=== PATIENT | male | born 1970 | race African-American/Black ===

== ENCOUNTER 2024-01-22 14:07 | Inpatient (IN) | payer OTHER ==
[2024-01-22 17:07] VITALS: BMI 18.7
[2024-01-22] MEDS ORDERED: BENZONATATE 200 MG CAPSULE PO PRN (19:15)
[2024-01-22] MEDS ORDERED: BISMUTH SUBSALICYLATE 524 MG/30 ML PO PRN (19:15)
[2024-01-22] MEDS ORDERED: NALOXONE HCL 0.4 MG/ML VIAL IM PRN (19:15)
[2024-01-22] MEDS ORDERED: DICYCLOMINE HCL 10 MG CAPSULE PO PRN (19:15)
[2024-01-22] MEDS ORDERED: MAG HYDROX/AL HYDROX/SIMETH 30 ML UNIT-DOSE CUP PO PRN (19:15)
[2024-01-22] MEDS ORDERED: IBUPROFEN 400 MG TABLET (FP) PO PRN (19:15)
[2024-01-22] MEDS ORDERED: MAGNESIUM HYDROX 2400MG/30ML ORAL SUSPENSION 30 ML CUP PO PRN (19:15)
[2024-01-22] MEDS ORDERED: NALOXONE (NARCAN) HCL 4 MG/0.1 ML SPRAY NS PRN (19:15)
[2024-01-22] MEDS ORDERED: LOPERAMIDE HCL 2 MG CAPSULE PO PRN (19:15)
[2024-01-22] MEDS ORDERED: guaiFENesin 600 MG TABLET.ER (FP) PO PRN (19:15)
[2024-01-22] MEDS ORDERED: ACETAMINOPHEN 325 MG TABLET (FP) PO PRN (19:15)
[2024-01-22] MEDS ORDERED: POLYETHYLENE GLYCOL (HEALTHYLAX) 3350 17 GM PACKET PO PRN (19:15)
[2024-01-22] MEDS ORDERED: BENZOCAINE/MENTHOL (CHLORASEPTIC ) LOZENGE MM PRN (19:15)
[2024-01-22] MEDS ORDERED: NICOTINE POLACRILEX 2 MG GUM BUC PRN (19:23)
[2024-01-22] MEDS ORDERED: chlordiazePOXIDE HCL 25 MG CAPSULE PO PRN (19:25)
[2024-01-22] MEDS: chlordiazePOXIDE HCL 25 MG CAPSULE PO SCH (22:30)
[2024-01-22] MEDS: MELATONIN 5 MG TABLETS PO SCH (22:31)
[2024-01-22] MEDS: THIAMINE 100 MG TABLET PO SCH (22:31)
[2024-01-23] MEDS ORDERED: methaDONE 40 MG, methaDONE 10 MG PO SCH (10:00)
[2024-01-23] MEDS: methaDONE 40 MG, methaDONE 20 MG PO SCH (10:39)
[2024-01-23] MEDS: NICOTINE 14 MG/24 HOURS TOPICAL PATCH TD SCH (10:40)
[2024-01-23] MEDS: PRENATAL VITAMINS W/ FOLIC ACID TABLET (FP) PO SCH (10:40)
[2024-01-23] MEDS: methaDONE HCL 10 MG TABLET PO SCH (10:43)
[2024-01-23 12:16] LABS: HEMOGLOBIN 13.5 GM/dL (11.7-16.9); MCHC 33.1 g/dl (32.0-35.9); MEAN CELL VOLUME 90.8 fl (80-96); MEAN PLT VOLUME 8.2 fl (7.5-11.1); PLATELET COUNT 245 10^3/uL (134-434); RBC 4.51 M/mm3 (4.00-5.60); RDW 14.4 % (11.9-15.9); WHITE BLOOD COUNT 5.7 K/mm3 (4.0-10.0)
[2024-01-23] MEDS: LIDOCAINE 5% TOPICAL PATCH TP SCH (12:33)
[2024-01-23 13:15] LABS: CHLORIDE 103 mmol/L (98-107); SODIUM 142 mmol/L (136-145)
[2024-01-23 13:23] LABS: BLOOD UREA NITROGEN 13.9 mg/dL (7-18); GLUCOSE,RANDOM 105 mg/dL (74-106); SGPT/ALT 22 U/L (13-61)
[2024-01-23 13:24] LABS: ALBUMIN 2.6 g/dl (3.4-5.0); CREATININE 0.8 mg/dL (0.55-1.3)
[2024-01-23 13:25] LABS: BILIRUBIN,TOTAL 0.4 mg/dL (0.2-1); TOT PROT 5.5 g/dl (6.4-8.2)
[2024-01-23 13:26] LABS: ALK PHOS 74 U/L (45-117); ANION GAP 6 mmol/L (4-13); CALCIUM 8.8 mg/dL (8.5-10.1); CO2 32 mmol/L (21-32); SGOT/AST 23 U/L (15-37)
[2024-01-23] MEDS: METHOCARBAMOL 500 MG TABLET PO PRN (16:54)
[2024-01-23] MEDS: IBUPROFEN 600 MG TABLET (FP) PO PRN (22:09)
[2024-01-23] MEDS: QUEtiapine FUMARATE 200 MG TABLET PO SCH (22:10)
[2024-01-23] MEDS: ATORVASTATIN CA 40 MG TABLET (FP) PO SCH (22:10)
[2024-01-23] MEDS: LIDOCAINE PATCH REMOVAL MC SCH (22:36)
[2024-01-24] MEDS: chlordiazePOXIDE HCL 25 MG CAPSULE PO SCH (05:55)
[2024-01-25] MEDS ORDERED: chlordiazePOXIDE HCL 10 MG CAPSULE PO PRN
[2024-01-25] MEDS: chlordiazePOXIDE HCL 10 MG CAPSULE PO SCH (05:20)
[2024-01-25] MEDS: ONDANSETRON *ODT* 4 MG TABLET SL PRN (07:27)
[2024-01-25] MEDS: hydrOXYzine PAMOATE 25 MG CAPSULE (FP) PO PRN (17:32)
[2024-01-26] MEDS: chlordiazePOXIDE HCL 10 MG CAPSULE PO SCH (05:30)
[2024-01-26 13:08] VITALS: RESP 16
[2024-01-27] MEDS: chlordiazePOXIDE HCL 10 MG CAPSULE PO ONE (05:18)
[2024-01-27 09:29] VITALS: BP 96/52; PULSE 88; TEMP 97.5
[2024-02-05] MEDS ORDERED: IBUPROFEN 400 MG TABLET (FP) PO PRN (15:23)
[2024-02-05] MEDS ORDERED: ONDANSETRON *ODT* 4 MG TABLET SL PRN (15:23)
[2024-02-05] MEDS ORDERED: MAG HYDROX/AL HYDROX/SIMETH 30 ML UNIT-DOSE CUP PO PRN (15:23)
[2024-02-05] MEDS ORDERED: METHOCARBAMOL 500 MG TABLET PO PRN (15:23)
[2024-02-05] MEDS ORDERED: BENZONATATE 200 MG CAPSULE PO PRN (15:23)
[2024-02-05] MEDS ORDERED: NALOXONE HCL 0.4 MG/ML VIAL IM PRN (15:23)
[2024-02-05] MEDS ORDERED: MAGNESIUM HYDROX 2400MG/30ML ORAL SUSPENSION 30 ML CUP PO PRN (15:23)
[2024-02-05] MEDS ORDERED: BENZOCAINE/MENTHOL (CHLORASEPTIC ) LOZENGE MM PRN (15:23)
[2024-02-05] MEDS ORDERED: IBUPROFEN 600 MG TABLET (FP) PO PRN (15:23)
[2024-02-05] MEDS ORDERED: NICOTINE POLACRILEX 2 MG GUM BUC PRN (15:23)
[2024-02-05] MEDS ORDERED: BISMUTH SUBSALICYLATE 524 MG/30 ML PO PRN (15:23)
[2024-02-05] MEDS ORDERED: hydrOXYzine PAMOATE 25 MG CAPSULE (FP) PO PRN (15:23)
[2024-02-05] MEDS ORDERED: LOPERAMIDE HCL 2 MG CAPSULE PO PRN (15:23)
[2024-02-05] MEDS ORDERED: DICYCLOMINE HCL 10 MG CAPSULE PO PRN (15:23)
[2024-02-05] MEDS ORDERED: NALOXONE (NARCAN) HCL 4 MG/0.1 ML SPRAY NS PRN (15:23)
[2024-02-05] MEDS ORDERED: POLYETHYLENE GLYCOL (HEALTHYLAX) 3350 17 GM PACKET PO PRN (15:23)
[2024-02-05] MEDS ORDERED: ACETAMINOPHEN 325 MG TABLET (FP) PO PRN (15:23)
[2024-02-05] MEDS ORDERED: guaiFENesin 600 MG TABLET.ER (FP) PO PRN (15:23)
[2024-02-05] MEDS ORDERED: THIAMINE 100 MG TABLET PO SCH (22:00)
[2024-02-05] MEDS ORDERED: MELATONIN 5 MG TABLETS PO SCH (22:00)
[2024-02-06] MEDS ORDERED: NICOTINE 14 MG/24 HOURS TOPICAL PATCH TD SCH (10:00)
[2024-02-06] MEDS ORDERED: PRENATAL VITAMINS W/ FOLIC ACID TABLET (FP) PO SCH (10:00)
== END 2024-01-27 11:54 | disposition home or self-care (01) | DRG 773 ==
LOC: YASAS 14:07 → Y3N 19:51
PROVIDERS: ADMIT Allergy & Immunology; ATTEND Family Medicine Addiction Medicine
PROC: HZ2ZZZZ Detoxification Services for Substance Abuse Treatment (ICD-10-PCS; principal; 2024-01-22)
DX: F10.230 Alcohol dependence with withdrawal, uncomplicated (principal); F11.20 Opioid dependence, uncomplicated; F14.10 Cocaine abuse, uncomplicated; F17.210 Nicotine dependence, cigarettes, uncomplicated; F20.9 Schizophrenia, unspecified; F32.A Depression, unspecified; F41.9 Anxiety disorder, unspecified; E78.5 Hyperlipidemia, unspecified; H91.92 Unspecified hearing loss, left ear; B35.3 Tinea pedis; M54.50 Low back pain, unspecified; G89.29 Other chronic pain
CPT/HCPCS: 36415; 80053; 80305; 80307; 85027; 86780; 93005; 93010; Q0162

== ENCOUNTER 2024-02-05 11:30 | Inpatient (IN) | payer OTHER ==
[2024-02-05 12:05] VITALS: BMI 19.5
[2024-02-05] MEDS ORDERED: BENZOCAINE/MENTHOL (CHLORASEPTIC ) LOZENGE MM PRN (15:32)
[2024-02-05] MEDS ORDERED: MAGNESIUM HYDROX 2400MG/30ML ORAL SUSPENSION 30 ML CUP PO PRN (15:32)
[2024-02-05] MEDS ORDERED: ONDANSETRON *ODT* 4 MG TABLET SL PRN (15:32)
[2024-02-05] MEDS ORDERED: hydrOXYzine PAMOATE 25 MG CAPSULE (FP) PO PRN (15:32)
[2024-02-05] MEDS ORDERED: IBUPROFEN 400 MG TABLET (FP) PO PRN (15:32)
[2024-02-05] MEDS ORDERED: BENZONATATE 200 MG CAPSULE PO PRN (15:32)
[2024-02-05] MEDS ORDERED: LOPERAMIDE HCL 2 MG CAPSULE PO PRN (15:32)
[2024-02-05] MEDS ORDERED: IBUPROFEN 600 MG TABLET (FP) PO PRN (15:32)
[2024-02-05] MEDS ORDERED: NALOXONE HCL 0.4 MG/ML VIAL IM PRN (15:32)
[2024-02-05] MEDS ORDERED: POLYETHYLENE GLYCOL (HEALTHYLAX) 3350 17 GM PACKET PO PRN (15:32)
[2024-02-05] MEDS ORDERED: ACETAMINOPHEN 325 MG TABLET (FP) PO PRN (15:32)
[2024-02-05] MEDS ORDERED: MAG HYDROX/AL HYDROX/SIMETH 30 ML UNIT-DOSE CUP PO PRN (15:32)
[2024-02-05] MEDS ORDERED: BISMUTH SUBSALICYLATE 524 MG/30 ML PO PRN (15:32)
[2024-02-05] MEDS ORDERED: METHOCARBAMOL 500 MG TABLET PO PRN (15:32)
[2024-02-05] MEDS ORDERED: guaiFENesin 600 MG TABLET.ER (FP) PO PRN (15:32)
[2024-02-05] MEDS ORDERED: NALOXONE (NARCAN) HCL 4 MG/0.1 ML SPRAY NS PRN (15:32)
[2024-02-05] MEDS ORDERED: NICOTINE POLACRILEX 2 MG GUM BUC PRN (15:32)
[2024-02-05] MEDS ORDERED: chlordiazePOXIDE HCL 25 MG CAPSULE PO PRN (15:38)
[2024-02-05] MEDS: chlordiazePOXIDE HCL 25 MG CAPSULE PO SCH (17:18)
[2024-02-05] MEDS: THIAMINE 100 MG TABLET PO SCH (22:43)
[2024-02-05] MEDS: MELATONIN 5 MG TABLETS PO SCH (22:43)
[2024-02-05] MEDS: ATORVASTATIN CA 40 MG TABLET (FP) PO SCH (22:44)
[2024-02-06] MEDS: methaDONE HCL 10 MG TABLET PO ONE (09:04)
[2024-02-06] MEDS: NICOTINE 14 MG/24 HOURS TOPICAL PATCH TD SCH (09:21)
[2024-02-06] MEDS: methaDONE 40 MG, methaDONE 20 MG PO SCH (09:24)
[2024-02-06] MEDS: PRENATAL VITAMINS W/ FOLIC ACID TABLET (FP) PO SCH (09:25)
[2024-02-06] MEDS: DICYCLOMINE HCL 10 MG CAPSULE PO PRN (10:07)
[2024-02-06 14:41] LABS: CHLORIDE 107 mmol/L (98-107); POTASSIUM 3.8 mmol/L (3.5-5.1); SODIUM 144 mmol/L (136-145)
[2024-02-06 14:51] LABS: CALCIUM 8.8 mg/dL (8.5-10.1)
[2024-02-06 14:52] LABS: ALBUMIN 2.6 g/dl (3.4-5.0); ANION GAP 6 mmol/L (4-13); BLOOD UREA NITROGEN 16.7 mg/dL (7-18); CO2 30 mmol/L (21-32); GLUCOSE,RANDOM 94 mg/dL (74-106); SGPT/ALT 20 U/L (13-61)
[2024-02-06 14:54] LABS: ALK PHOS 70 U/L (45-117); BILIRUBIN,TOTAL 0.4 mg/dL (0.2-1); TOT PROT 5.4 g/dl (6.4-8.2)
[2024-02-06 14:55] LABS: CREATININE 0.7 mg/dL (0.55-1.3); SGOT/AST 19 U/L (15-37)
[2024-02-06] MEDS: QUEtiapine FUMARATE 200 MG TABLET PO SCH (22:24)
[2024-02-07] MEDS: chlordiazePOXIDE HCL 25 MG CAPSULE PO SCH (05:52)
[2024-02-07] MEDS ORDERED: methaDONE HCL 10 MG TABLET PO SCH (06:00)
[2024-02-08] MEDS ORDERED: chlordiazePOXIDE HCL 10 MG CAPSULE PO PRN
[2024-02-08] MEDS: chlordiazePOXIDE HCL 10 MG CAPSULE PO SCH (05:35)
[2024-02-08 18:25] VITALS: BP 114/60; PULSE 75; RESP 16; TEMP 98.7
[2024-02-09] MEDS ORDERED: chlordiazePOXIDE HCL 10 MG CAPSULE PO SCH (05:00)
[2024-02-10] MEDS ORDERED: chlordiazePOXIDE HCL 10 MG CAPSULE PO ONE (05:00)
== END 2024-02-08 19:05 | disposition left against medical advice (07) | DRG 770 ==
LOC: YASAS 11:30 → Y6N 16:17
PROVIDERS: ADMIT Allergy & Immunology; ATTEND Surgery
PROC: HZ2ZZZZ Detoxification Services for Substance Abuse Treatment (ICD-10-PCS; principal; 2024-02-05)
DX: F10.230 Alcohol dependence with withdrawal, uncomplicated (principal); F11.20 Opioid dependence, uncomplicated; F14.10 Cocaine abuse, uncomplicated; F17.210 Nicotine dependence, cigarettes, uncomplicated; F20.9 Schizophrenia, unspecified; F19.282 Other psychoactive substance dependence with psychoactive substance-induced sleep disorder; F19.24 Other psychoactive substance dependence with psychoactive substance-induced mood disorder; E78.5 Hyperlipidemia, unspecified; H91.92 Unspecified hearing loss, left ear; B35.3 Tinea pedis
CPT/HCPCS: 36415; 80053; 80305; 80307

== ENCOUNTER 2024-03-26 11:48 | Inpatient (IN) | payer OTHER ==
[2024-03-26 12:20] VITALS: BMI 18.6
[2024-03-26] MEDS ORDERED: guaiFENesin 600 MG TABLET.ER (FP) PO PRN (13:04)
[2024-03-26] MEDS ORDERED: BISMUTH SUBSALICYLATE 262 MG/15 ML BTL PO PRN ×2 (13:04→15:30)
[2024-03-26] MEDS ORDERED: NALOXONE (NARCAN) HCL 4 MG/0.1 ML SPRAY NS PRN (13:04)
[2024-03-26] MEDS ORDERED: NICOTINE POLACRILEX 2 MG GUM BUC PRN (13:04)
[2024-03-26] MEDS ORDERED: IBUPROFEN 400 MG TABLET (FP) PO PRN ×2 (13:04→15:28)
[2024-03-26] MEDS ORDERED: BENZONATATE 200 MG CAPSULE PO PRN (13:04)
[2024-03-26] MEDS ORDERED: MAG HYDROX/AL HYDROX/SIMETH 30 ML UNIT-DOSE CUP PO PRN (13:04)
[2024-03-26] MEDS ORDERED: DICYCLOMINE HCL 10 MG CAPSULE PO PRN (13:04)
[2024-03-26] MEDS ORDERED: LOPERAMIDE HCL 2 MG CAPSULE PO PRN (13:04)
[2024-03-26] MEDS ORDERED: NICOTINE POLACRILEX 2 MG LOZENGE BC PRN (13:04)
[2024-03-26] MEDS ORDERED: MAGNESIUM HYDROX 2400MG/30ML ORAL SUSPENSION 30 ML CUP PO PRN (13:04)
[2024-03-26] MEDS ORDERED: IBUPROFEN 600 MG TABLET (FP) PO PRN ×2 (13:04→15:29)
[2024-03-26] MEDS ORDERED: BENZOCAINE/MENTHOL (CHLORASEPTIC ) LOZENGE MM PRN (13:04)
[2024-03-26] MEDS ORDERED: POLYETHYLENE GLYCOL (HEALTHYLAX) 3350 17 GM PACKET PO PRN (13:04)
[2024-03-26] MEDS ORDERED: ACETAMINOPHEN 325 MG TABLET (FP) PO PRN (15:35)
[2024-03-26] MEDS: ACETAMINOPHEN 325 MG TABLET (FP) PO PRN (15:35)
[2024-03-26] MEDS: METHOCARBAMOL 500 MG TABLET PO PRN (15:35)
[2024-03-26] MEDS: diazePAM 5 MG TABLET PO SCH (17:09)
[2024-03-26] MEDS: THIAMINE 100 MG TABLET PO SCH (22:06)
[2024-03-26] MEDS: MELATONIN 5 MG TABLETS PO SCH (22:06)
[2024-03-27] MEDS ORDERED: methaDONE HCL 10 MG TABLET PO SCH (06:00)
[2024-03-27] MEDS: methaDONE 80 MG, methaDONE 20 MG PO SCH (06:01)
[2024-03-27] MEDS: PRENATAL VITAMINS W/ FOLIC ACID TABLET (FP) PO SCH (10:15)
[2024-03-27] MEDS: FERROUS SO4 325 MG TABLET (FP) PO SCH (10:15)
[2024-03-27 13:01] LABS: HEMATOCRIT 41.3 % (35.4-49); HEMOGLOBIN 13.9 GM/dL (11.7-16.9); MCH 29.9 pg (25.7-33.7); MCHC 33.7 g/dl (32.0-35.9); MEAN CELL VOLUME 88.8 fl (80-96); PLATELET COUNT 221 10^3/uL (134-434); RBC 4.66 M/mm3 (4.00-5.60); RDW 14.5 % (11.9-15.9); WHITE BLOOD COUNT 7.8 K/mm3 (4.0-10.0)
[2024-03-27 13:04] LABS: POTASSIUM 4.5 mmol/L (3.5-5.1)
[2024-03-27] MEDS: CALCIUM (OYSTER SHELL) 500 MG TABLET (FP) PO SCH (13:45)
[2024-03-27 14:04] LABS: ALBUMIN 3.2 g/dl (3.4-5.0); BLOOD UREA NITROGEN 22.2 mg/dL (7-18)
[2024-03-27 14:06] LABS: CALCIUM 9.3 mg/dL (8.5-10.1)
[2024-03-27 14:07] LABS: BILIRUBIN,TOTAL 0.5 mg/dL (0.2-1); TOT PROT 6.8 g/dl (6.4-8.2)
[2024-03-27 14:10] LABS: CREATININE 0.8 mg/dL (0.55-1.3)
[2024-03-27] MEDS: diazePAM 5 MG TABLET PO PRN (18:07)
[2024-03-27] MEDS ORDERED: CICLOPIROX OLAMINE SCH (22:00)
[2024-03-27] MEDS: QUEtiapine FUMARATE 100 MG TABLET (FP) PO SCH (22:21)
[2024-03-28] MEDS: diazePAM 5 MG TABLET PO SCH (06:12)
[2024-03-28] MEDS: ONDANSETRON *ODT* 4 MG TABLET SL PRN (06:26)
[2024-03-28] MEDS: CALCIUM (OYSTER SHELL) 500 MG TABLET (FP) PO SCH (09:19)
[2024-03-29] MEDS: diazePAM 5 MG TABLET PO SCH (05:56)
[2024-03-29] MEDS ORDERED: NALOXONE (NYS OPIOID OVERDOSE PROGRAM) 4 MG/0.1 ML SPRAY NS SCH (09:45)
[2024-03-29 20:59] VITALS: RESP 16
[2024-03-30] MEDS: diazePAM 5 MG TABLET PO ONE (05:43)
[2024-03-30 09:00] VITALS: BP 107/63; PULSE 70; TEMP 97.8
== END 2024-03-30 12:39 | disposition home or self-care (01) | DRG 773 ==
LOC: YASAS 11:48 → Y6N 14:17
PROVIDERS: ADMIT Allergy & Immunology; ATTEND Surgery
PROC: HZ2ZZZZ Detoxification Services for Substance Abuse Treatment (ICD-10-PCS; principal; 2024-03-26)
DX: F10.230 Alcohol dependence with withdrawal, uncomplicated (principal); F11.20 Opioid dependence, uncomplicated; F17.213 Nicotine dependence, cigarettes, with withdrawal; F19.282 Other psychoactive substance dependence with psychoactive substance-induced sleep disorder; F19.24 Other psychoactive substance dependence with psychoactive substance-induced mood disorder; E83.51 Hypocalcemia; H91.92 Unspecified hearing loss, left ear; B35.3 Tinea pedis
CPT/HCPCS: 36415; 80053; 80305; 80307; 85027; Q0162

== ENCOUNTER 2024-05-31 16:37 | Inpatient (IN) | payer OTHER ==
[2024-05-31 17:13] VITALS: BMI 21.2
[2024-05-31] MEDS ORDERED: LORazepam 1 MG TABLET PO PRN (17:19)
[2024-05-31] MEDS ORDERED: NALOXONE (NARCAN) HCL 4 MG/0.1 ML SPRAY NS PRN (17:24)
[2024-05-31] MEDS ORDERED: MAG HYDROX/AL HYDROX/SIMETH 30 ML UNIT-DOSE CUP PO PRN (17:24)
[2024-05-31] MEDS ORDERED: BENZOCAINE/MENTHOL (CHLORASEPTIC ) LOZENGE MM PRN (17:24)
[2024-05-31] MEDS ORDERED: BENZONATATE 200 MG CAPSULE PO PRN (17:24)
[2024-05-31] MEDS ORDERED: DICYCLOMINE HCL 10 MG CAPSULE PO PRN (17:24)
[2024-05-31] MEDS ORDERED: ONDANSETRON *ODT* 4 MG TABLET SL PRN (17:24)
[2024-05-31] MEDS ORDERED: LOPERAMIDE HCL 2 MG CAPSULE PO PRN (17:24)
[2024-05-31] MEDS ORDERED: MAGNESIUM HYDROX 2400MG/30ML ORAL SUSPENSION 30 ML CUP PO PRN (17:24)
[2024-05-31] MEDS ORDERED: ACETAMINOPHEN 325 MG TABLET (FP) PO PRN (17:24)
[2024-05-31] MEDS ORDERED: guaiFENesin 600 MG TABLET.ER (FP) PO PRN (17:24)
[2024-05-31] MEDS ORDERED: POLYETHYLENE GLYCOL (HEALTHYLAX) 3350 17 GM PACKET PO PRN (17:24)
[2024-05-31] MEDS ORDERED: NICOTINE POLACRILEX 2 MG GUM BUC PRN (17:25)
[2024-05-31] MEDS ORDERED: LORazepam 1 MG TABLET ONE (20:52)
[2024-05-31] MEDS: LORazepam 2 MG TABLET PO SCH (20:58)
[2024-05-31] MEDS: MELATONIN 5 MG TABLETS PO SCH (23:08)
[2024-05-31] MEDS: THIAMINE 100 MG TABLET PO SCH (23:09)
[2024-06-01] MEDS ORDERED: LORazepam 1 MG TABLET PO SCH (05:30)
[2024-06-01] MEDS: LORazepam 1 MG TABLET PO SCH (05:41)
[2024-06-01] MEDS ORDERED: SIMETHICONE 80 MG TAB.CHEW (FP) PO PRN (09:15)
[2024-06-01 09:36] LABS: HEMATOCRIT 35.9 % (35.4-49); HEMOGLOBIN 11.7 GM/dL (11.7-16.9); MCH 28.9 pg (25.7-33.7); MCHC 32.5 g/dl (32.0-35.9); MEAN PLT VOLUME 9.1 fl (7.5-11.1); PLATELET COUNT 189 10^3/uL (134-434); RBC 4.03 M/mm3 (4.00-5.60); RDW 13.9 % (11.9-15.9); WHITE BLOOD COUNT 5.8 K/mm3 (4.0-10.0)
[2024-06-01 09:40] LABS: POTASSIUM 3.7 mmol/L (3.5-5.1)
[2024-06-01 09:58] LABS: ALBUMIN 2.8 g/dl (3.4-5.0); BLOOD UREA NITROGEN 18.4 mg/dL (7-18)
[2024-06-01 09:59] LABS: CALCIUM 8.6 mg/dL (8.5-10.1)
[2024-06-01 10:01] LABS: CREATININE 0.8 mg/dL (0.55-1.3)
[2024-06-01 10:02] LABS: BILIRUBIN,TOTAL 0.7 mg/dL (0.2-1)
[2024-06-01 10:03] LABS: TOT PROT 5.9 g/dl (6.4-8.2)
[2024-06-01] MEDS ORDERED: chlordiazePOXIDE HCL 25 MG CAPSULE PO PRN (10:09)
[2024-06-01] MEDS: PRENATAL VITAMINS W/ FOLIC ACID TABLET (FP) PO SCH (10:44)
[2024-06-01] MEDS: chlordiazePOXIDE HCL 10 MG CAPSULE PO SCH (11:17)
[2024-06-01] MEDS: methaDONE 80 MG, methaDONE 20 MG PO ONE (11:17)
[2024-06-01] MEDS: methaDONE HCL 10 MG TABLET PO ONE ×2 (12:37→12:58)
[2024-06-01 13:19] VITALS: RESP 16
[2024-06-01] MEDS: METHOCARBAMOL 500 MG TABLET PO PRN (17:22)
[2024-06-01] MEDS: CALCIUM 250MG/VIT-D 125 UNITS 1 COMBO TABLET PO SCH (22:46)
[2024-06-01] MEDS: QUEtiapine FUMARATE 200 MG TABLET PO SCH (22:46)
[2024-06-01] MEDS: MELATONIN 5 MG TABLETS PO SCH (22:47)
[2024-06-02] MEDS ORDERED: LORazepam 0.5 MG TABLET PO SCH (05:00)
[2024-06-02] MEDS: chlordiazePOXIDE HCL 10 MG CAPSULE PO SCH (05:59)
[2024-06-02] MEDS: methaDONE 80 MG, methaDONE 20 MG PO ONE (09:21)
[2024-06-02 10:00] VITALS: BP 104/64; PULSE 65; TEMP 98.7
[2024-06-02] MEDS ORDERED: methaDONE HCL 10 MG TABLET PO ONE (10:00)
[2024-06-02] MEDS: NALOXONE (NYS OPIOID OVERDOSE PROGRAM) 4 MG/0.1 ML SPRAY NS SCH (12:30)
[2024-06-03] MEDS ORDERED: LORazepam 0.5 MG TABLET PO PRN
[2024-06-03] MEDS ORDERED: chlordiazePOXIDE HCL 10 MG CAPSULE PO ONE (05:00)
[2024-06-03] MEDS ORDERED: LORazepam 0.5 MG TABLET PO ONE (05:00)
== END 2024-06-02 13:00 | disposition home or self-care (01) | DRG 773 ==
LOC: YASAS 16:37 → Y6N 20:31
PROVIDERS: ADMIT Allergy & Immunology; ATTEND Allergy & Immunology
PROC: HZ2ZZZZ Detoxification Services for Substance Abuse Treatment (ICD-10-PCS; principal; 2024-05-31)
DX: F10.230 Alcohol dependence with withdrawal, uncomplicated (principal); F14.20 Cocaine dependence, uncomplicated; F11.20 Opioid dependence, uncomplicated; F17.210 Nicotine dependence, cigarettes, uncomplicated; F19.282 Other psychoactive substance dependence with psychoactive substance-induced sleep disorder; F19.24 Other psychoactive substance dependence with psychoactive substance-induced mood disorder; F20.9 Schizophrenia, unspecified; E78.5 Hyperlipidemia, unspecified; H91.92 Unspecified hearing loss, left ear; B35.3 Tinea pedis
CPT/HCPCS: 36415; 80053; 80305; 80307; 85027; 86780

== ENCOUNTER 2024-07-05 11:58 | Inpatient (IN) | payer OTHER ==
[2024-07-05 12:26] VITALS: BMI 21.8
[2024-07-05] MEDS ORDERED: BENZONATATE 200 MG CAPSULE PO PRN (13:05)
[2024-07-05] MEDS ORDERED: NICOTINE POLACRILEX 2 MG GUM BUC PRN (13:05)
[2024-07-05] MEDS ORDERED: ACETAMINOPHEN 325 MG TABLET (FP) PO PRN (13:05)
[2024-07-05] MEDS ORDERED: MAG HYDROX/AL HYDROX/SIMETH 30 ML UNIT-DOSE CUP PO PRN (13:05)
[2024-07-05] MEDS ORDERED: BENZOCAINE/MENTHOL (CHLORASEPTIC ) LOZENGE MM PRN (13:05)
[2024-07-05] MEDS ORDERED: MAGNESIUM HYDROX 2400MG/30ML ORAL SUSPENSION 30 ML CUP PO PRN (13:05)
[2024-07-05] MEDS ORDERED: POLYETHYLENE GLYCOL (HEALTHYLAX) 3350 17 GM PACKET PO PRN (13:05)
[2024-07-05] MEDS ORDERED: LOPERAMIDE HCL 2 MG CAPSULE PO PRN (13:05)
[2024-07-05] MEDS ORDERED: guaiFENesin 600 MG TABLET.ER (FP) PO PRN (13:05)
[2024-07-05] MEDS ORDERED: NALOXONE (NARCAN) HCL 4 MG/0.1 ML SPRAY NS PRN (13:05)
[2024-07-05] MEDS ORDERED: NICOTINE POLACRILEX 2 MG LOZENGE BC PRN (13:05)
[2024-07-05] MEDS ORDERED: hydrOXYzine PAMOATE 25 MG CAPSULE (FP) PO ONE (15:36)
[2024-07-05] MEDS: hydrOXYzine PAMOATE 25 MG CAPSULE (FP) PO PRN (15:44)
[2024-07-05] MEDS: DICYCLOMINE HCL 10 MG CAPSULE PO PRN (17:44)
[2024-07-05] MEDS: diazePAM 5 MG TABLET PO ONE (20:25)
[2024-07-05] MEDS: diazePAM 5 MG TABLET PO PRN (20:37)
[2024-07-05] MEDS: MELATONIN 5 MG TABLETS PO SCH (22:56)
[2024-07-05] MEDS: THIAMINE 100 MG TABLET PO SCH (22:58)
[2024-07-05] MEDS: diazePAM 5 MG TABLET PO SCH (22:59)
[2024-07-06] MEDS: METHOCARBAMOL 500 MG TABLET PO PRN (08:26)
[2024-07-06] MEDS: PRENATAL VITAMINS W/ FOLIC ACID TABLET (FP) PO SCH (10:13)
[2024-07-06] MEDS: FAMOTIDINE 20 MG TABLET PO SCH (10:14)
[2024-07-06 11:59] LABS: HEMATOCRIT 38.1 % (35.4-49); HEMOGLOBIN 12.5 GM/dL (11.7-16.9); MCH 29.1 pg (25.7-33.7); MCHC 32.7 g/dl (32.0-35.9); MEAN CELL VOLUME 88.8 fl (80-96); MEAN PLT VOLUME 9.6 fl (7.5-11.1); PLATELET COUNT 159 10^3/uL (134-434); RBC 4.29 M/mm3 (4.00-5.60); RDW 14.5 % (11.9-15.9); WHITE BLOOD COUNT 5.9 K/mm3 (4.0-10.0)
[2024-07-06 12:03] LABS: ALBUMIN 3.1 g/dl (3.4-5.0); CALCIUM 8.7 mg/dL (8.5-10.1)
[2024-07-06 12:04] LABS: BLOOD UREA NITROGEN 15.5 mg/dL (7-18)
[2024-07-06 12:07] LABS: CREATININE 0.8 mg/dL (0.55-1.3)
[2024-07-06 12:08] LABS: BILIRUBIN,TOTAL 0.5 mg/dL (0.2-1); TOT PROT 6.5 g/dl (6.4-8.2)
[2024-07-06] MEDS ORDERED: methaDONE HCL 10 MG TABLET PO ONE (14:22)
[2024-07-06] MEDS: chlordiazePOXIDE HCL 25 MG CAPSULE PO PRN (14:42)
[2024-07-06] MEDS: methaDONE 80 MG, methaDONE 20 MG PO ONE (14:44)
[2024-07-06] MEDS: chlordiazePOXIDE HCL 25 MG CAPSULE PO SCH (17:16)
[2024-07-06] MEDS: PRAZOSIN HCL 1 MG CAPSULE PO SCH (22:12)
[2024-07-06] MEDS: QUEtiapine FUMARATE 200 MG TABLET PO SCH (22:12)
[2024-07-07] MEDS: chlordiazePOXIDE HCL 25 MG CAPSULE PO SCH (05:35)
[2024-07-07] MEDS ORDERED: diazePAM 5 MG TABLET PO SCH (06:00)
[2024-07-07] MEDS ORDERED: methaDONE HCL 10 MG TABLET PO ONE (10:04)
[2024-07-07] MEDS: ONDANSETRON *ODT* 4 MG TABLET SL PRN (10:06)
[2024-07-07] MEDS: methaDONE 80 MG, methaDONE 20 MG PO ONE (11:07)
[2024-07-07] MEDS ORDERED: chlordiazePOXIDE HCL 25 MG CAPSULE PO PRN (13:13)
[2024-07-08] MEDS ORDERED: chlordiazePOXIDE HCL 10 MG CAPSULE PO PRN
[2024-07-08] MEDS ORDERED: chlordiazePOXIDE HCL 25 MG CAPSULE PO SCH (05:00)
[2024-07-08] MEDS: chlordiazePOXIDE HCL 10 MG CAPSULE PO SCH (05:52)
[2024-07-08] MEDS: methaDONE 80 MG, methaDONE 20 MG PO SCH (05:53)
[2024-07-08] MEDS ORDERED: diazePAM 5 MG TABLET PO SCH (06:00)
[2024-07-08] MEDS ORDERED: methaDONE HCL 10 MG TABLET PO SCH (06:00)
[2024-07-08 09:06] VITALS: BP 112/80; PULSE 89; RESP 17; TEMP 97.8
[2024-07-09] MEDS ORDERED: chlordiazePOXIDE HCL 10 MG CAPSULE PO PRN
[2024-07-09] MEDS ORDERED: chlordiazePOXIDE HCL 10 MG CAPSULE PO SCH (05:00)
[2024-07-09] MEDS ORDERED: chlordiazePOXIDE HCL 10 MG CAPSULE PO ONE (05:00)
[2024-07-09] MEDS ORDERED: diazePAM 5 MG TABLET PO ONE (06:00)
[2024-07-10] MEDS ORDERED: chlordiazePOXIDE HCL 10 MG CAPSULE PO SCH (05:00)
== END 2024-07-08 10:25 | disposition home or self-care (01) | DRG 773 ==
LOC: YASAS 11:58 → Y6N 16:30
PROVIDERS: ADMIT Allergy & Immunology; ATTEND Allergy & Immunology
PROC: HZ2ZZZZ Detoxification Services for Substance Abuse Treatment (ICD-10-PCS; principal; 2024-07-05)
DX: F10.230 Alcohol dependence with withdrawal, uncomplicated (principal); F11.20 Opioid dependence, uncomplicated; F14.20 Cocaine dependence, uncomplicated; F12.20 Cannabis dependence, uncomplicated; F17.210 Nicotine dependence, cigarettes, uncomplicated; F19.24 Other psychoactive substance dependence with psychoactive substance-induced mood disorder; F20.9 Schizophrenia, unspecified; F43.10 Post-traumatic stress disorder, unspecified
CPT/HCPCS: 36415; 80053; 80305; 80307; 85027; Q0162